=== PATIENT | female | born 1995 | race Caucasian/White ===

== ENCOUNTER 2016-12-12 17:26 | Emergency (ER) | payer OTHER ==
[2016-12-12 17:46] VITALS: BP 125/81
[2016-12-12] MEDS ORDERED: LIDOCAINE 1% 2 ML VIAL ONE (17:46)
--- NOTE | 2016-12-12 17:48 | ED Physician Documentation ---
PD HPI UPPER EXT INJURY - Stated complaint Stated Complaint: RT PALM LAC - Chief complaint Chief Complaint: Laceration - History obtained from History obtained from: Patient - History of Present Illness Location: Right, Hand (palm) Type of injury: Laceration (with butter knife) Where injury occurred: Home Timing - onset: How many hours ago (1) Timing - duration: Hours (1) Timing - details: Abrupt onset Pain level max: 6 Pain level now: 3 Improved by: Rest, Ice, Immobilization Worsened by: Moving, Palpating Associated symptoms: No: Weakness, Numbness, Tingling, Swelling Contributing factors: No: Anticoagulated Recently seen: Not recently seen - Additonal information Additional information: pt is right handed. Review of Systems : denies: Now EGA PD PAST MEDICAL HISTORY - Past Medical History Past Medical History: No - Past Surgical History Past Surgical History: No - Present Medications Home Medications: Ambulatory Orders Medication Instructions Recorded Confirmed No Known Home Medications [No 12/12/16 12/12/16 Known Home Medications] - Allergies Allergies/Adverse Reactions: Allergies Allergy/AdvReac Type Severity Reaction Status Date / Time No Known Drug Allergies Allergy Verified 12/12/16 17:31 - Social History Does the pt smoke?: No Smoking Status: Never smoker Does the pt drink ETOH?: No - Immunizations Immunizations are current?: Yes Immunizations: TDAP current <10years PD ED PE NORMAL - Vitals Vital signs reviewed: Yes - General General: Alert and oriented X 3, No acute distress - Derm Derm: Warm and dry - Neuro Neuro: Alert and oriented X 3 PD ED PE EXPANDED - Extremities VIKY UE/Hands Visual: 1 - laceration (1.5cm, linear, subcutaneous. NVI.) Results - Vitals Vitals: Vital Signs - 24 hr 12/12/16 12/12/16 17:29 17:37 Temperature 36.4 C L Heart Rate 81 Respiratory 18 Rate Blood Pressure 125/81 H O2 Saturation 100 Oxygen O2 Source Room air Procedures - Laceration (location) R palm Length in cm: 1.5 Wound type: Linear, Into subcut fat, Clean Neurovascular status: Sensory intact, Motor intact, Vascular intact Tendon involvement: Tendon intact. No: Tendon Injury Anesthesia: Lidocaine 1% Wound Preparation: Irrigated copiously NS Skin layer closure: Nylon, Size #-0 - enter number (4), Sutures - enter # (2) Other: Patient tolerated well, No complications, Neurovascular intact, Dressing applied, Tetanus UTD Complexity: Simple PD MEDICAL DECISION MAKING - ED course Complexity details: considered differential, d/w patient ED course: Laceration repaired. Tolerated well. Warnings of infection and instructions on wound care given at bedside. Also counseled on how to minimize scarring. Patient counseled regarding signs and symptoms for which I believe and urgent re -evaluation would be necessary. Patient with good understanding of and agreement to plan and is comfortable going home at this time This document was made in part using voice recognition software. While efforts are made to proofread this document, sound alike and grammatical errors may occur. Departure - Departure Disposition: 01 Home, Self Care Clinical Impression: Laceration of palm Qualifiers: Encounter type: initial encounter Laterality: right Qualified Code(s): S61.411A - Laceration without foreign body of right hand, initial encounter Condition: Good Instructions: ED Laceration Hand Follow-Up: your,doctor in 10 days for suture removal [Other] Comments: Keep the wound clean. Return if you worsen. Follow-up with your doctor in approximately 10 days for suture removal. Discharge Date/Time: 12/12/16 18:02
== END 2016-12-12 18:02 | disposition home or self-care (01) ==
LOC: ED 17:26
DX: S61.411A Laceration without foreign body of right hand, initial encounter (principal); W26.0XXA Contact with knife, initial encounter; Y92.009 Unspecified place in unspecified non-institutional (private) residence as the place of occurrence of the external cause
CPT/HCPCS: 12001; 99282; 99283

== ENCOUNTER 2018-10-24 13:08 | Emergency (ER) | payer OTHER ==
[2018-10-24 14:09] LABS: BASOPHILS % (AUTO) 0.3 %; EOSINOPHILS # (AUTO) 0.1 10^3/uL (0.0-0.7); HGB - HEMOGLOBIN 12.3 g/dL (12.0-16.0); LYMPHOCYTES # (AUTO) 1.6 10^3/uL (1.5-3.5); LYMPHOCYTES % (AUTO) 16.7 %; MEAN CORPUSCULAR HGB CONC 35.1 g/dL (32.0-36.0); MEAN PLATELET VOLUME 8.3 fL (7.9-10.8); MONOCYTES # (AUTO) 0.4 10^3/uL (0.0-1.0); NEUTROPHILS # (AUTO) 7.6 10^3/uL (1.5-6.6); PLT - PLATELET COUNT 207 10^3/uL (130-450); RED BLOOD COUNT 3.85 10^6/uL (4.20-5.40); RED CELL DISTRIBUTION WIDTH 13.1 % (12.0-15.0); WHITE BLOOD COUNT 9.8 x10^3/uL (4.8-10.8)
[2018-10-24 14:28] LABS: ALBUMIN 3.6 g/dL (3.2-5.5); BILIRUBIN,TOTAL 0.6 mg/dL (0.2-1.0); CALCIUM 9.6 mg/dL (8.5-10.3); CREATININE 0.4 mg/dL (0.4-1.0); TOTAL PROTEIN 7.3 g/dL (6.7-8.2)
--- NOTE | 2018-10-24 14:42 | ED Physician Documentation ---
PD HPI FEMALE - Stated complaint Stated Complaint: ABDOMINAL PAIN - Chief complaint Chief Complaint: Abd Pain - History obtained from History obtained from: Patient - History of Present Illness Timing - onset: How many months ago (1) Timing - duration: Months (1) Timing - details: Intermittant Pain level max: 7 Pain level max: 1 Associated symptoms: Abdominal pain (crampy, diffuse), Vaginal bleeding (states once a week or so, has a gush of bright red blood.). No: Fever, Chest/shoulder pain, Back pain, Pelvic pain, Vaginal pain Contributing factors: (18 weeks) OB-[employer] History: G (2), P (1) Similar symptoms before: Has not had sx before Recently seen: Not recently seen Review of Systems Ten Systems: 10 systems reviewed and negative Constitutional: denies: Fever, Chills Ears: denies: Ear pain Cardiac: denies: Chest pain / pressure Respiratory: denies: Cough GI: denies: Vomiting : reports: Now EGA (18w) Skin: denies: Rash Musculoskeletal: denies: Neck pain, Back pain PD PAST MEDICAL HISTORY - Past Medical History Past Medical History: No - Past Surgical History Past Surgical History: No - Present Medications Home Medications: Ambulatory Orders Medication Instructions Recorded Confirmed Valacyclovir HCl [Valtrex] 1,000 mg PO BID #20 tablet 10/24/18 - Allergies Allergies/Adverse Reactions: Allergies Allergy/AdvReac Type Severity Reaction Status Date / Time No Known Drug Allergies Allergy Verified 10/24/18 13:16 - Social History Does the pt smoke?: No Smoking Status: Never smoker Does the pt drink ETOH?: No Does the pt have substance abuse?: No - Immunizations Immunizations are current?: Yes Immunizations: TDAP current <10years - POLST Patient has POLST: No PD ED PE NORMAL - Vitals Vital signs reviewed: Yes - General General: Alert and oriented X 3, No acute distress - HEENT HEENT: Moist mucous membranes - Neck Neck: Supple, no meningeal sign - Cardiac Cardiac: RRR, Strong equal pulses - Respiratory Respiratory: No respiratory distress, Clear bilaterally - Abdomen Abdomen: Soft, Non tender, Non distended - Female 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 vesicular lesions on cervix. No CMT or adnexal tenderness.) - Back Back: No CVA TTP - Derm Derm: Warm and dry - Extremities Extremities: No edema - Neuro Neuro: Alert and oriented X 3 - Psych Psych: Normal mood, Normal affect Results - Vitals Vitals: Vital Signs - 24 hr 10/24/18 10/24/18 15:16 16:44 Temperature 36.9 C Heart Rate 72 76 Respiratory 14 18 Rate Blood Pressure 102/57 L 115/64 O2 Saturation 100 100 Oxygen O2 Source Room air - Labs Labs: Microbiology 10/24/18 15:10 Wet Prep - Final Vaginal 10/24/18 15:10 KRAOLYN Preparation - Final Other - Vaginal Laboratory Tests 10/24/18 10/24/18 10/24/18 14:02 14:02 14:02 WBC 9.8 RBC 3.85 L Hgb 12.3 Hct 35.0 L MCV 91.0 MCH 32.0 H MCHC 35.1 RDW 13.1 Plt Count 207 MPV 8.3 Neut # (Auto) 7.6 H Lymph # (Auto) 1.6 Geary # (Auto) 0.4 Eos # (Auto) 0.1 Baso # (Auto) 0.0 Absolute Nucleated RBC 0.00 Nucleated RBC % 0.0 Sodium 134 L Potassium 3.6 Chloride 104 Carbon Dioxide 21 Anion Gap 9.0 BUN 6 Creatinine 0.4 Estimated GFR (MDRD) 194 Glucose 85 Calcium 9.6 Total Bilirubin 0.6 AST 17 ALT 17 Alkaline Phosphatase 48 Total Protein 7.3 Albumin 3.6 Globulin 3.7 Albumin/Globulin Ratio 1.0 Lipase 44 HCG, Quant 97950.00 Urine Color Urine Clarity Urine pH Ur Specific [place] Urine Protein Urine Glucose (UA) Urine Ketones Urine Occult Blood Urine Nitrite Urine Bilirubin Urine Urobilinogen Ur Leukocyte Esterase Ur Microscopic Review Urine Culture Comments 10/24/18 14:06 WBC RBC Hgb Hct MCV MCH MCHC RDW Plt Count MPV Neut # (Auto) Lymph # (Auto) Geary # (Auto) Eos # (Auto) Baso # (Auto) Absolute Nucleated RBC Nucleated RBC % Sodium Potassium Chloride Carbon Dioxide Anion Gap BUN Creatinine Estimated GFR (MDRD) Glucose Calcium Total Bilirubin AST ALT Alkaline Phosphatase Total Protein Albumin Globulin Albumin/Globulin Ratio Lipase HCG, Quant Urine Color YELLOW Urine Clarity CLEAR Urine pH 6.0 Ur Specific [place] 1.010 Urine Protein NEGATIVE Urine Glucose (UA) NEGATIVE Urine Ketones NEGATIVE Urine Occult Blood TRACE-INTA Urine Nitrite NEGATIVE Urine Bilirubin NEGATIVE Urine Urobilinogen 0.2 (NORMAL) Ur Leukocyte Esterase NEGATIVE Ur Microscopic Review NOT INDICATED Urine Culture Comments NOT INDICATED - Rads (name of study) OB US Radiology: Prelim report reviewed, EMP read contemporaneously, See rad report (single live IUP. EGA 19w2d) PD MEDICAL DECISION MAKING - ED course Complexity details: reviewed results, re-evaluated patient, considered differential, d/w patient ED course: 23-year-old female presents to the emergency department with intermittent abdominal cramping over the past few weeks. She is approximately 18 weeks . Ultrasound shows that she is closer to 19 weeks and 2 days. Her pelvic examination is remarkable for thick yellow discharge from the cervical loss with what appears to be herpes cervicitis. Does have a history of herpes. Will start on Valtrex. Also given Rocephin and azithromycin to cover for PID, even though she is in a long-term monogamous relationship. No cervical motion tenderness. No evidence of tubo-ovarian abscess. I did discuss the case with her OB, Dr. Ashraf who will follow her up in the office. Patient counseled regarding signs and symptoms for which I believe and urgent re-evaluation would be necessary. Patient with good understanding of and agreement to plan and is comfortable going home at this time This document was made in part using voice recognition software. While efforts are made to proofread this document, sound alike and grammatical errors may occur. Departure - Departure Disposition: 01 Home, Self Care Clinical Impression: Herpes simplex cervicitis Condition: Good Instructions: ED Herpes Simplex Virus Type 2 Follow-Up: KIRIT SANCHES DO [Primary Care Provider] - Within 1 week Prescriptions: Valacyclovir HCl [Valtrex] 1,000 mg PO BID #20 tablet Comments: Take the valtrex until gone. Follow up with gynecology for repeat evaluation after completion of your medications. Return if you worsen. Discharge Date/Time: 10/24/18 16:44
[2018-10-24] MEDS ORDERED: AZITHROMYCIN 250 MG TABLET PO STA (15:15)
[2018-10-24] MEDS ORDERED: LIDOCAINE 1% 2 ML VIAL MC ONE (15:15)
[2018-10-24] MEDS ORDERED: cefTRIAXone 250 MG VIAL IM STA (15:15)
[2018-10-24 16:16] LABS: BILIRUBIN,URINE NEGATIVE (NEGATIVE); GLUCOSE, URINE (UA) NEGATIVE (NEGATIVE); KETONES,URINE (UA) NEGATIVE (NEGATIVE); LEUKOCYTE ESTERASE, URINE NEGATIVE (NEGATIVE); NITRITE,URINE NEGATIVE (NEGATIVE); OCCULT BLOOD,URINE TRACE-INTA (NEGATIVE); PROTEIN,URINE NEGATIVE (NEGATIVE); UROBILINOGEN,URINE 0.2 (NORMAL) E.U./dL (NORMAL)
[2018-10-24 16:22] LABS: CLARITY,URINE CLEAR (CLEAR)
--- NOTE | 2018-10-24 16:42 | Ultrasound Report ---
Reason: abd pain, vb, 18 weeks preg Procedure Date: 10/24/2018 Accession Number: [id number] / [id number] Procedure: US - OB F/U or Repeat CPT Code: FULL RESULT: EXAM: FOLLOW-UP OBSTETRICAL ULTRASOUND EXAM DATE: 10/24/2018 04:20 PM. CLINICAL HISTORY: Abd pain, vb, 18 weeks preg. COMPARISON: None. TECHNIQUE: Real-time sonographic evaluation of the fetus performed by the car painter. Multiple development representative static images were saved for review. DATING: Established EGA 18 weeks 2 days with SHIRA 03/25/2019 based on verbal report. EGA 19 weeks 2 days with SHIRA 03/18/2019 based on the current ultrasound. GENERAL EVALUATION Yang . Cardiac activity: 152 bpm. movement: Visualized. Presentation: Cephalic. Placenta: Anterior position. Amniotic fluid: Normal. ANDREW 16.3 cm. MVP 5.2 cm. BIOMETRY Bi-Parietal Diameter (BPD): 4.48 cm, 19 weeks 4 days Head Circumference (HC): 16.4 cm, 19 weeks 1 day Abdominal Circumference (AC): 13.9 cm, 19 weeks 2 days Femur Length (FL): 2.9 cm, 19 weeks 2 days Estimated Weight: 283 g, 94 percentile for AH. MATERNAL STRUCTURES Cervix measures 3.9 cm in length and appears closed by transabdominal technique IMPRESSION: 1. Yang live intrauterine with gestational age 19 weeks 2 days based on today's measurements. Stated dating of 18 weeks 2 days.. RADIA
[2018-10-24 16:45] VITALS: BP 115/64
== END 2018-10-24 16:44 | disposition home or self-care (01) ==
LOC: ED 13:08
DX: O98.312 Other infections with a predominantly sexual mode of transmission complicating pregnancy, second trimester (principal); A60.03 Herpesviral cervicitis; Z3A.19 19 weeks gestation of pregnancy
CPT/HCPCS: 36415; 76816; 80053; 81003; 83690; 84702; 85025; 87210; 87220; 87491; 87591; 96372; 99283; A9270; 81001; 87086